=== PATIENT | female | born 1965 | race Caucasian/White ===

== ENCOUNTER 2017-10-04 16:20 | Emergency (ER) | payer SELFPAY ==
[2017-10-04] MEDS ORDERED: ZOFRAN INJ 4 MG VIAL ONE ×2 (16:35→16:41)
[2017-10-04 16:45] VITALS: BMI 26.6
[2017-10-04] MEDS ORDERED: ASPIRIN PO ONE (16:46)
[2017-10-04] MEDS ORDERED: ZOFRAN INJ 4 MG VIAL IVP ONE (16:46)
[2017-10-04] MEDS ORDERED: ASPIRIN 81 MG CHEWTAB ONE (16:48)
[2017-10-04 17:04] LABS: BASOPHILS % (AUTO) 0.3 % (0.2-1.0); EOSINOPHILS # (AUTO) 0.1 x10^3/uL (0.0-0.2); EOSINOPHILS % (AUTO) 1.1 % (0.9-2.9); HEMATOCRIT 39.8 % (36.0-47.0); HEMOGLOBIN 13.8 g/dL (12.0-16.0); LYMPHOCYTES # (AUTO) 1.7 X10^3/uL (1.3-2.9); LYMPHOCYTES % (AUTO) 19.9 % (21.0-51.0); MEAN CORPUSCULAR HEMOGLOBIN 28.7 pg (27.0-34.0); MEAN CORPUSCULAR HGB CONC 34.5 g/dL (33.0-35.0); MEAN CORPUSCULAR VOLUME 83.2 fL (80.0-100.0); MEAN PLATELET VOLUME 8.3 fL (7.4-11.0); MONOCYTES # (AUTO) 0.6 x10^3/uL (0.3-0.8); MONOCYTES % (AUTO) 7.3 % (0.0-13.0); NEUTROPHILS # (AUTO) 6.1 x10^3/uL (2.2-4.8); NEUTROPHILS % (AUTO) 71.4 % (42.0-75.0); PLATELET COUNT 285 X10^3/uL (150.0-450.0); RED BLOOD COUNT 4.79 X10^6/uL (3.5-5.4); RED CELL DISTRIBUTION WIDTH 13.3 % (11.6-16.5); WHITE BLOOD COUNT 8.5 X10^3/uL (3.6-10.0)
--- NOTE | 2017-10-04 17:06 | DR.EXTPAIN ---
HPI - Time seen Time seen: 16:45 - PCP Primary Care Physician: neel hawthorne - Complaint/Symptoms Chief Complaint Doctor Comments: Patient presented to the ED with complaint that felt her heart racing and was just not feeling right. She was sweating and had tremors. She states that she has an anxiety disorder but this does not feel that way. Her anxiety medication was changed to celexa. She took one does of the nex medication. Chief Complaint:: pt stated she felt like her heart was racing away with her with chest wall discomfort. she also stated her left arm felt funny - Source History Provided: Patient - Mode of arrival Mode of Arrival: Ambulatory - Timing Onset of Chief Complaint: 10/04/17 PMH - PMH Past Medical History: Yes Past Medical History: Anxiety Past Surgical History: No - Family History History of Family Medical Conditions: Yes Family Medical History: [place], Hypertension - Social History Does patient currently use any type of tobacco product: No Have you used tobacco products in the last 12 months: No Type of Tobacco Use: None Does any household member use tobacco: No Alcohol Use: None Do you use any recreational Drugs:: No Lives With: Family Lives Where: Home - infectious screening In the last 2 months have you had wt loss of >10#?: NO Have you had fever, night sweats or hemotysis?: No Have you traveled outside the country in the last 6 months?: No Isolation: Standard ROS - Review of Systems Eyes: No Symptoms Reported ENTM: No Symptoms Reported Respiratoy: No Symptoms Reported Cardiovascular: No Symptoms Reported Gastrointestinal/Abdominal: No Symptoms Reported Genitourinary: No Symptoms Reported Neurological: No Symptoms Reported Musculoskeletal: No Symptoms Reported Integumentary: No Symptoms Reported Hematologic/Lymphatic: No Symptoms Reported Endocrine: No Symptoms Reported Psychiatric: No Symptoms Reported All Other Systems: Reviewed and Negative PE - Vital Signs Vitals: Temperature 98.6 F Pulse Rate [Apical] 62 Pulse Rate 75 Respiratory Rate 17 Blood Pressure [Left Arm] 119/69 Blood Pressure 151/73 O2 Sat by Pulse Oximetry 100 - General Limitations: No Limitations General Appearance: Alert, In No Apparent Distress - Head Head Exam: Normal Inspection, Atraumatic - Eyes Eye exam: Normal Appearance, PERRL, EOMI - ENT ENT Exam: Normal Exam - Neck Neck Exam: Normal Inspection, Full ROM - Chest Chest Inspection: Normal Inspection - Respiratory Respiratory Exam: Normal Lung Sounds Bilat Respiratory Exam: Bilateral Clear to Auscultation - Cardiovascular Cardiovascular Exam: Regular Rate, Normal Rhythm - Abdominal Exam Abdominal Exam: Normal Inspection, Normal Bowel Sounds Abdominal Tenderness: negative: RUQ, RLQ, LUQ, LLQ, Epigastrium, Suprapubic, Diffuse, Mild, Moderate, Severe, Other - Extremities Extremities Exam: Normal Inspection, Full ROM - Upper Extremities Shoulder Exam: Normal Inspection Arm Exam: Normal Inspection, Full ROM Elbow Exam: Normal Inspection, Full ROM Forearm Exam: Normal Inspection, Full ROM Hand Exam: Normal Inspection Neuromotor Exam: Normal Exam Neurosensory Exam: Normal Exam Hand Tendon Exam: Flexor Digitorium Profundus (Location) Upper Ext. Vascular Exam: Capillary Refill, Radial Pulse - Lower Extremities Hip/Pelvis Exam: Normal Inspection, Full ROM Upper Leg Exam: Normal Inspection Knee Exam: Normal Inspection Lower Leg Exam: Normal Inspection, Full ROM Ankle Exam: Normal Inspection, Full ROM Foot/Toe Exam: Normal Inspection, Full ROM Neurovascular/Tendon Exam: Normal Capillary Refill Gait Exam: Observed and Normal - Back Back Exam: Normal Inspection, Full ROM - Neurological Neurological Exam: Alert, Oriented X3, CN II-XII Intact - Psychiatric Psychiatric Exam: Normal Affect - Skin Skin Exam: Warm, Dry, Intact Distribution: Generalized Description: Size, Tenderness Course - Reevaluation 1st: Improved - Education/Counseling Educated On: Treatment, Diagnosis, Prognosis, Needs for Follow Up ROR - Labs Reviewed Laboratory Results Reviewed?: Yes (Low potassium) Result Diagrams: 10/04/17 16:33 10/04/17 16:33 Laboratory: WBC 8.5 X10^3/uL (3.6-10.0) 10/04/17 16:33 RBC 4.79 X10^6/uL (3.5-5.4) 10/04/17 16:33 Hgb 13.8 g/dL (12.0-16.0) 10/04/17 16:33 Hct 39.8 % (36.0-47.0) 10/04/17 16:33 MCV 83.2 fL (80.0-100.0) 10/04/17 16:33 MCH 28.7 pg (27.0-34.0) 10/04/17 16:33 MCHC 34.5 g/dL (33.0-35.0) 10/04/17 16:33 RDW 13.3 % (11.6-16.5) 10/04/17 16:33 Plt Count 285 X10^3/uL (150.0-450.0) 10/04/17 16:33 MPV 8.3 fL (7.4-11.0) 10/04/17 16:33 Neut % (Auto) 71.4 % (42.0-75.0) 10/04/17 16:33 Lymph % (Auto) 19.9 % (21.0-51.0) L 10/04/17 16:33 [place] % (Auto) 7.3 % (0.0-13.0) 10/04/17 16:33 Eos % (Auto) 1.1 % (0.9-2.9) 10/04/17 16:33 Baso % (Auto) 0.3 % (0.2-1.0) 10/04/17 16:33 Neut # (Auto) 6.1 x10^3/uL (2.2-4.8) H 10/04/17 16:33 Lymph # (Auto) 1.7 X10^3/uL (1.3-2.9) 10/04/17 16:33 [place] # (Auto) 0.6 x10^3/uL (0.3-0.8) 10/04/17 16:33 Eos # (Auto) 0.1 x10^3/uL (0.0-0.2) 10/04/17 16:33 Baso # (Auto) 0.0 X10^3/uL (0.0-0.1) 10/04/17 16:33 Absolute Nucleated RBC 0.0 /100WBC 10/04/17 16:33 INR Target Range - 10/04/17 16:33 INR 1.01 (0.8-1.3) 10/04/17 16:33 APTT 27.3 SECONDS (22.9-36.5) 10/04/17 16:33 PTT Comment - 10/04/17 16:33 Sodium 138 mmol/L (136-145) 10/04/17 16:33 Corrected Sodium TNP 10/04/17 16:33 Potassium 3.3 mmol/L (3.5-5.1) L 10/04/17 16:33 Chloride 102 mmol/L (98-107) 10/04/17 16:33 Carbon Dioxide 26.3 mmol/L (21-32) 10/04/17 16:33 BUN 13 mg/dL (7-18) 10/04/17 16:33 Creatinine 0.79 mg/dL (0.55-1.02) 10/04/17 16:33 Est GFR (MDRD) Af Amer > 60 (>60) 10/04/17 16:33 Est GFR (MDRD) Non-Af > 60 (>60) 10/04/17 16:33 Glucose 110 mg/dL (65-99) H 10/04/17 16:33 Calcium 8.6 mg/dL (8.5-10.1) 10/04/17 16:33 Corrected Calcium TNP 10/04/17 16:33 Magnesium 1.9 mg/dL (1.7-2.9) 10/04/17 16:33 Total Bilirubin 0.20 mg/dL (0.2-1.0) 10/04/17 16:33 AST 23 Units/L (15-37) 10/04/17 16:33 ALT 50 Units/L (12-78) 10/04/17 16:33 Alkaline Phosphatase 81 Units/L (46-116) 10/04/17 16:33 Creatine Kinase 20 Units/L (26-192) L 10/04/17 16:33 CK-MB (CK-2) < 1.0 ng/mL (0-4.0) 10/04/17 16:33 CK/CKMB % Calc 5.0 % (<4) 10/04/17 16:33 Troponin I < 0.02 ng/mL (0-1.5) 10/04/17 16:33 Total Protein 7.6 g/dL (6.4-8.2) 10/04/17 16:33 Albumin 3.6 g/dL (3.4-5.0) 10/04/17 16:33 Globulin 4.0 g/dL (2.5-4.5) 10/04/17 16:33 Albumin/Globulin Ratio 0.9 Ratio (1.1-2.1) L 10/04/17 16:33 Specimen Type Clean catch urine 10/04/17 17:14 Urine Color Pale yellow (YELLOW) 10/04/17 17:14 Urine Appearance Clear (CLEAR) 10/04/17 17:14 Urine pH 6.5 (5.0 - 8.0) 10/04/17 17:14 Ur Specific [place] 1.010 (1.000-1.030) 10/04/17 17:14 Urine Protein Negative (NEGATIVE) 10/04/17 17:14 Urine Glucose (UA) Negative (NEGATIVE) 10/04/17 17:14 Urine Ketones Negative (NEGATIVE) 10/04/17 17:14 Urine Occult Blood Negative (NEGATIVE) 10/04/17 17:14 Urine Nitrite Negative (NEGATIVE) 10/04/17 17:14 Urine Bilirubin Negative (NEGATIVE) 10/04/17 17:14 Urine Urobilinogen Normal (NORMAL) 10/04/17 17:14 Ur Leukocyte Esterase Negative (NEGATIVE) 10/04/17 17:14 - XRAY XRAY Interpreted by: Radiologist (Chest: No acute cardiopulmonary disease) - Diagnosis Discharge Problem: Medication side effect, Hypokalemia - Discharge Plan Condition: Stable - Follow ups/Referrals Follow ups/Referrals: NEEL HAWTHORNE [Primary Care Provider] - 3 days - Instructions
[2017-10-04 17:18] LABS: BLOOD UREA NITROGEN 13 mg/dL (7-18); CALCIUM 8.6 mg/dL (8.5-10.1); CARBON DIOXIDE 26.3 mmol/L (21-32); CHLORIDE 102 mmol/L (98-107); CREATININE 0.79 mg/dL (0.55-1.02); SODIUM 138 mmol/L (136-145); TROPONIN I < 0.02 ng/mL (0-1.5); eGFR BLACK RACES > 60 (>60); eGFR NON BLACK RACES > 60 (>60)
--- NOTE | 2017-10-04 17:20 | RAD ---
History: Chest pain on left with tachycardia Study: Portable upright AP chest Comparison: None Findings: The lungs are clear and the heart and mediastinum are unremarkable. There is no edema or ef fusion or congestion demonstrated. Impression: No evidence for acute cardiopulmonary disease Reported By:
[2017-10-04 17:21] LABS: BILIRUBIN,URINE NEGATIVE (NEGATIVE); BLOOD/HEMOGLOBIN,URINE NEGATIVE (NEGATIVE); GLUCOSE, URINE NEGATIVE (NEGATIVE); KETONES,URINE NEGATIVE (NEGATIVE); LEUKOCYTE ESTERASE ,URINE NEGATIVE (NEGATIVE); NITRITES,URINE NEGATIVE (NEGATIVE); PH,URINE 6.5 (5.0 - 8.0); PROTEIN,URINE NEGATIVE (NEGATIVE); UROBILINOGEN,URINE NORMAL (NORMAL)
[2017-10-04 17:21] LABS: ALANINE AMINOTRANSFERASE 50 Units/L (12-78); ALBUMIN 3.6 g/dL (3.4-5.0); ALKALINE PHOSPHATASE 81 Units/L (46-116); ASPARTATE AMINO TRANSFERASE 23 Units/L (15-37); CREATINE KINASE 20 Units/L (26-192); CREATINE KINASE MB < 1.0 ng/mL (0-4.0); MAGNESIUM 1.9 mg/dL (1.7-2.9); TOTAL PROTEIN 7.6 g/dL (6.4-8.2)
[2017-10-04 17:22] LABS: APPEARANCE,URINE CLEAR (CLEAR); COLOR,URINE PALE YELLOW (YELLOW)
[2017-10-04] MEDS ORDERED: K-LYTE EFFERVESCENT PO STA (17:50)
[2017-10-04] MEDS ORDERED: K-LYTE EFFERVESCENT ONE (17:55)
[2017-10-04 18:37] VITALS: BP 114/68
== END 2017-10-04 18:42 | disposition home or self-care (01) ==
LOC: ER 16:34
DX: T88.7XXA Unspecified adverse effect of drug or medicament, initial encounter (principal); E87.6 Hypokalemia
CPT/HCPCS: 36415; 71045; 80053; 81003; 82550; 82553; 83735; 84484; 85025; 85610; 85730; 93005; 93010; 96365; 96374; 99283; A4222; J2405